=== PATIENT | female | born 1985 | race Caucasian/White ===

== ENCOUNTER 2024-11-24 12:57 | Emergency (ER) | payer OTHER, SELFPAY ==
--- OUTSIDE RECORDS SUMMARY | 2024-11-24 13:00 | XMS_ITS | Encounter Summary ---
Author Organization [place] Address [address] [place] [id number] Care Team Providers Care Card Brusher Name Role Phone Dahiana Segundo MD Primary Care Provider Encounter Details Date Type Department Care Team (Late st Contact Info) Description 08/29/[address] [place] [address] Dahiana Segundo MD [address] [place] [phone] Social History Tobacco Use Types Packs/Day Years Used Date Smoking Tobacco: Never Alcohol Use Standard Drinks/Week Comments No 0 (1 standard drink = 0.6 oz pur e alcohol) Adolescent Education Answer Date Record ed Getting School Help Needed Not on file 04/12 Comments No Sex and Gender Information Value Date Recorded Sex Assigned at Not on file 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
--- OUTSIDE RECORDS SUMMARY | 2024-11-24 13:00 | XMS_ITS | Encounter Summary ---
Author Organization [place] Address [address] [place] [phone] Care Team Providers Care Oracle Manufacturing Consultant Name Role Phone Dahiana Segundo MD Primary Care Provider Reason for Visit * Reason Onset Date Comments Call To Schedule Appointment 04/27/2020 Lef t message to schedule DEXA Encounter Details Date Type Department Care Team (Late st Contact Info) Description 04/27/[address] [place] [address] Dahiana Segundo MD [address] [place] [phone] Call To Schedule Appointment (Left message to schedule DEXA) Social History Tobacco Use Types Packs/Day Years Used Date Smoking Tobacco: Never Alcohol Use Standard Drinks/Week Comments No 0 (1 standard drink = 0.6 oz pur e alcohol) Adolescent Education Answer Date Record ed Getting School Help Needed Not on file 04/12 Comments No Sex and Gender Information Value Date Recorded Sex Assigned at Not on file 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
--- OUTSIDE RECORDS SUMMARY | 2024-11-24 13:00 | XMS_ITS | Clinical Summary ---
Author Organization [place] Address [address] [place] [phone] Care Team Providers Care Interim Controller Name Role Phone Dahiana Segundo MD Primary Care Provider Allergies Active Allergy Reactions Criticality Noted Date Comments Penicillins Rash Low 08/17/2011 Medications Vit-Fe Fumarate-FA ( MULTIVITAMIN PLUS IRON) 27-0.8 MG TABS Take 1 tablet by mouth daily. Active ferrous sulfate (SLO-FE) 142 (45 FE) MG TBCRIndications:S upervision of other normal Take 1 tablet by mouth 2 times daily. 08/19/2011 Active Active Problems Problem Noted Date Diagnosed Date Indication for care in labor or delivery 015 (normal spontaneous vaginal delivery) 05/27 Labor and delivery indication for care or interv ention 04/20/2013 Immunizations Name Administration Dates Next Due Rhogam 05/28/2015 Social History Tobacco Use Types Packs/Day Years Used Date Smoking Tobacco: Never Alcohol Use Standard Drinks/Week Comments No 0 (1 standard drink = 0.6 oz pur e alcohol) Adolescent Education Answer Date Record ed Getting School Help Needed Not on file 04/12 Comments No Sex and Gender Information Value Date Recorded Sex Assigned at Not on file 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 Gender Identity Not on file Sexual Orientation Not on file Last Filed Vital Signs Vital Sign Reading Time Taken Comments Blood Pressure 121/77 05/29/2015 8:49 AM SUBSTATION OPERATOR CHIEF Pulse 71 05/28/2015 12:04 AM SUBSTATION OPERATOR CHIEF Temperature 36.6 C (97.9 F) 05/29/2015 8:49 AM SUBSTATION OPERATOR CHIEF Respiratory Rate 18 05/29/2015 8:49 AM SUBSTATION OPERATOR CHIEF Oxygen Saturation 98% 04/20/2013 4:48 PM CDT Inhaled Oxygen Concentration - - Weight 64 kg (141 lb) 04/20/2013 11:02 AM CDT Height 157.5 cm (5' 2) 04/20/2013 11:02 AM CDT Body Mass Index 25.79 04/20/2013 11:02 AM CDT Plan of Treatment Health Maintenance Due Date Last Done Comments ADVANCE CARE PLANNING 1984 ANNUAL REVIEW OF HM ORDERS 1984 DIABETES SCREENING 1984 MAMMO SCREENING 1984 YEARLY PREVENTIVE VISIT 10/16/1987 HEPATITIS C SCREENING 2002 HEPATITIS B IMMUNIZATION (1 of 3 - 19+ 3-dose series) 10/16/2003 DTAP/TDAP/TD IMMUNIZATION (2 - Td or Tdap) 03/10/2023 03/10/2013 COVID-19 Vaccine ( - 2023- season) 2024 11/30/2020, 11/02/2020 INFLUENZA VACCINE (#1) 2024 , 05/13/2019, 06/03/2018, Additional history exists PHQ-2 (once per calendar year) 2024 LIPID 2024 HPV TEST 10/10/2028 10/11/2023 PAP 10/10/2028 10/11/2023 ZOSTER IMMUNIZATION (1 of 2) 2034 HIV SCREENING Completed 10/11/2014, 08/23, 01/03/2011 Pneumococcal Vaccine: Pediatrics (0 to 5 Years) and At-Risk Patients (6 to 49 Years) Aged Out 08/31/2019 No longer eligible based on patient's age to complete this topic HPV IMMUNIZATION Aged Out No longer e ligible based on patient's age to complete this topic MENINGITIS IMMUNIZATION Aged Out No l onger eligible based on patient's age to complete this topic Procedures Procedure Name Priority Date/Time Associated Diagnosis Comments GYNECOLOGIC CYTOLOGY Routine 10/11/2023 3:59 PM CDT Encounter for gynecological examination (general) (routine) without abnormal findings HPV HIGH RISK TYPES DNA CERVICAL Routine 10/11/2023 3:59 PM CDT Encounter for gynecological examination (general) (routine) without abnormal findings HIV ANTIGEN ANTIBODY COMBO Routine 10/11/2014 from Last 3 Months or Most Recently Relevant to Health Maintenance Results * Gynecologic Cytology (PAP) (10/11/2023 3:59 PM CDT) Interpretation Negative for Intraepithelial Lesion or Malignancy (NILM) 10/16/2023 12:40 PM CDT [facility] Comment Papanicolaou Test Limitations: Cervical cytology is a screening test with limited sensitivity, and regular screening is critical for cancer prevention. Pap tests are primarily effective for the diagnosis/prevent ion of squamous cell carcinoma, not adenocarcinoma or other cancers. 10/16/2023 12:40 PM CDT [facility] Specimen Adequacy Satisfactory for evaluation, endocervical/allison sformation zone component present 10/16/2023 12:40 PM CDT [facility] Clinical Information none 10/16/2023 12:40 PM CDT [facility] LMP/Menopause Date 09-24-23 10/16/2023 12:40 PM CDT [facility] Reflex Testing Yes regardless of result 10/16/2023 12:40 PM CDT [facility] Previous Abnormal? No 10/16/2023 12:40 PM CDT [facility] Previous Abnormal Diagnosis lps neg/hpv-neg 10/16/2023 12:40 PM CDT [facility] Performing Labs The technical component of this testing was completed at [facility] 10/16/2023 12:40 PM CDT [facility] Brushing CERVIX UTERI STRUCTURE / Unknown 10/11/2023 3:59 PM CDT 10/11/2023 8:40 PM CDT us Dahiana PATEL - [place] REYES Final Result [facility] [address], [address] [place] [phone] * HPV High Risk Types DNA Cervical (10/11/2023 3:59 PM CDT) Other HR HPV Negative Negative 10/17/2023 4:39 PM CDT [facility] HPV16 DNA Negative Negative 10/17/2023 4:39 PM CDT [facility] HPV18 DNA Negative Negative 10/17/2023 4:39 PM CDT [facility] FINAL DIAGNOSIS This patient's sample is negative for HPV DNA. This test was developed and its performance characteristics determined by the [facility], [facility] Diagn[facility]. It has not been cleared or approved by the FDA. The laboratory is regulated under CLIA as qualified to perform high-complexity testing. This test is used for clinical purposes. It should not be regarded as investigational or for research. METHODOLOGY: The [employer] 4800 system uses automated extraction, simultaneous amplification of HPV (L1 region) and beta-globin, followed by real time detection of fluorescent labeled HPV and beta globin using specific oligonucleotide probes. The test specifically identifies types HPV 16 DNA and HPV 18 DNA while concurrently detecting the rest of the high risk types (31, 33, 35, 39, 45, 51, 52, 56, 58, 59, 66 or 68). COMMENTS: This test is not intended for use as a screening device for woman under age 30 with normal cervical cytology. Results should be correlated with cytologic and histologic findings. Close clinical followup is recommended. 10/17/2023 4:39 PM CDT [facility] Brushing CERVIX UTERI STRUCTURE / Unknown Non-blood Collection / Unknown 10/11/2023 3:59 PM CDT 10/17/2023 8:19 AM CDT us Dahiana Segundo MD LAB - BLOOD ORDERABLES Final R esult [facility] [address], [address] [place] [phone], [facility] * HIV Antigen Antibody Combo (10/11/2014) HIV Antigen Antibody Combo negative Blood specimen (specimen) us Patient Reported LAB - BLOOD ORDERABLES Final Re sult from Last 3 Months or Most Recently Relevant to Health Maintenance Insurance [employer] Care Teams Interim Controller Relationship Specialty Start Date End Date Dahiana Segundo MD [address] [facility] [address] [place] [phone] PCP - General photographs curator 07/19/11
--- OUTSIDE RECORDS SUMMARY | 2024-11-24 13:00 | XMS_ITS | Data Portability ---
Author Organization [facility] [employer], [id number] Address [address] [place] [address] Assessment No assessment recorded. Plan of Treatment Reminders Order Date Submit Date Provider Last Modified By Organization Details Last Modified Time Details Appointments None recorded. Lab Pap test, slide(s), cervical 2023 024 [facility], [address] [facility], [address], [place], [address], 4 17:43:07 hemoglobin (Hb), fingerstick , blood 2020 [id number] _[facility] , [address] [place] [address], [address], [place], [address], 21:43:09 Referral None recorded. Procedures None recorded. Surgeries None recorded. Imaging None recorded. Medication Orders None recorded. Patient TargetsNo targets recorded. Patient Instructions Encounter Date Encounter Id Patient Instructions Last Modified By Organization Details Last Modified Time 12/16/2020 [id number] - Encouraged breast self-awareness and monthly breast exams. - Discussed appropriate breast cancer screening and mammogram intervals. - Non-gynecologic health concerns managed by primary care provider. - Continue f/u with GI for GI issues. ameschke Not available 12/16/2020 21:44:12 05/25/2022 [id number] - Encouraged breast self-awareness and monthly breast exams. - Calcium and vitamin D intake discussed. - Discussed appropriate breast cancer screening and mammogram intervals. - Non-gynecologic health concerns managed by primary care provider. ameschke Not available 05/27/2022 12:46:13 10/11/2023 [id number] - Encouraged breast self-awareness and monthly breast exams. Discussed concern with soreness/full feeling of left breast. Improved today and exam normal. Recommend monitoring. If persists, she will call and would then recommend diagnostic mammogram and US. She agrees. - Patient will return to clinic for fasting labs - cholesterol and glucose (screening) - Discussed appropriate breast cancer screening and mammogram intervals. - Non-gynecologic health concerns managed by primary care provider. ameschchanning Not available 10/11/2023 21:55:40 Reason for Referral None Reported. Results Created Date Observation Date Name Description Value Unit Range Abnormal Flag Note LastModifiedBy Organization Detail LastModifiedTime 12/17/19 21 12/16/2020 hemog lobin (Hb), finge rstic k, blood fingerstick hemoglobin 12.6 g/dL 12.0-1 5.0 Not Available [id number] le_vera [address] [facility] [address], [place], [address], 12/16/2020 17:09:07 10/11/19 24 10/11/2023 GYNEC OLOGI C CYTOL OGY (PAP SMEAR ) gynecologic cytology SEE RESULT S BELOW SPECI MEN SOURC E [place] ing Cervi x BKR LAB AP PRODUCT GRADER INTER PRETA TION: Negat floresita for Intra epith elial Codey [place] or Samanta jimenez (NILM ) Elect elisabeth rizvi rehan d by Susanne Andrea , MATEUSZ (ASCP ) on 2023 at 12:40 PM Path repor [email or web address] ments Imp Spec: Papan icola ou Test Limit ation s: Cervi blanca cytol ogy is a scree mel test with limit ed sensi tivit y, and regul ar scree mel is criti blanca for cance r preve ntion . Pap tests are prima rily effec tive for the diagn osis/ preve ntion of squam ous cell carci noma, not adeno carci noma or other cance rs. BKR LAB AP PRODUCT GRADER ADEQU ACY: Satis facto ry for evalu ation , endoc ervic al/tr ansfo rmati on zone compo nent prese nt Path repor [email or web address] evant Hx Spec: none BKR LAB AP LMP: 3-5-2 4 BKR LAB AP HPV REFLE X: Yes regar dless of resul t BKR LAB AP PREVI OUS ABNOR MAL: No BKR LAB AP PREVI OUS ABNL DX: lps 12-20 18 neg/h pv-ne g Path repor [email or web address] ments Imp Spec: The techn ical compo nent of this testi ng was compl eted at [facility] Not Available [address], [place], [address], 10/17/2023 17:43:06 10/11/19 24 10/11/2023 HPV HIGH RISK TYPES DNA CERVI BLANCA other HR HPV Negati ve negati ve Not Available [address], [place], [address], 10/17/2023 17:43:24 10/11/19 24 10/11/2023 HPV HIGH RISK TYPES DNA CERVI BLANCA HPV16 DNA Negati ve negati ve Not Available [address], [place], [address], 10/17/2023 17:43:24 10/11/19 24 10/11/2023 HPV HIGH RISK TYPES DNA CERVI BLANCA HPV18 DNA Negati ve negati ve Not Available [address], [place], [address], 10/17/2023 17:43:24 10/11/19 24 10/11/2023 HPV HIGH RISK TYPES DNA CERVI BLANCA final diagnosis See note below This patie nt's sampl e is negat floresita for HPV DNA. This test was devel oped and its perfo rmanc e katrina cteri stics deter mined by the [facility] . It has not been clear ed or appro susannah by the FDA. The labor atory is regul ated under CLIA as quali fied to perfo rm high- compl exity testi ng. This test is used for clini blanca purpo ses. It shoul d not be regar ded as inves tigat ional or for resea rch. METHO DOLOG Y: The [employer] 4800 syste m uses autom ated extra ction , simul taneo us ampli ficat ion of HPV (L1 regio n) and beta- globi n, follo wed by real time detec tion of fluor escen t label ed HPV and beta globi n using speci fic oligo nucle otide probe s. The test speci fical ly ident ifies types HPV 16 DNA and HPV 18 DNA while concu rrent ly detec ting the rest of the high risk types (31, 33, 35, 39, 45, 51, 52, 56, 58, 59, 66 or 68). COMME NTS: This test is not inten ded for use as a scree mel devic e for woman under age 30 with garret l cervi blanca cytol ogy. Resul ts shoul d be corre lated with cytol ogic and histo logic findi ngs. Close clini blanca follo wup is recom brianna d. Not Available [address], [place], [address], 10/17/2023 17:43:24 Result Notes None recorded. Problems No Known Problems Procedures Surgical History Date Name Laterality Status Provider Name and Address Organization Details Recorded Time 10/11/19 24 Date of Last Pap Smear completed Oksana Calderón [place] - [facility] 10/18/2023 11:39:45 06/28/20 19 Date of Last [place] [address] [facility],[address], [place], [address], [place] [facility] [employer] 05/25/2022 12:14:26 lumpectomy of left breast completed Not Available [facility] 02/29/2020 01:04:49 tooth extraction completed Not Available [facility] 02/29/2020 01:04:49 colposcopy of cervix completed Not Available [facility] 02/29/2020 01:04:49 Imaging Results None recorded. Procedure Notes None recorded. Medical Equipment None Reported. Allergies Allergen ID Allergen Name Allergen Category Reaction Reaction Severity Criticality Documentation Date Start Date Code Code System Note Provider Name and Address Organization Details Recorded Time 731157 Product containin g penicilli n (product) medicatio n Not available Not available Not available 02/26/2020 48175 8001 SNOMED *Note : 07/28 - Not Available [facility] 0 16:58:32 286319 amoxicill in trihydrat e medicatio n Not available Not available Not available 02/26/2020 21352 8 RxNorm *Note : 07/28 - Not Available [facility] 0 16:58:32 Medications Name Sig Start Date Stop Date Status Note LastModified by Organization Details LastModified Time hydrocortis one acetate 25 mg rectal suppository INSERT 1 SUPPOSITO RY BY RECTAL ROUTE THREE TIMES A WEEK 05/25 completed Not Available Not Available Not Available cephalexin 500 mg capsule TAKE 1 CAPSULE BY MOUTH THREE TIMES A DAY 10/10 completed Not Available Not Available Not Available polymyxin B sulfate 10,000 unit-trimet hoprim 1 mg/mL eye drops INSTILL 1 DROP INTO EACH EYE 4 TIMES DAILY FOR 7 DAYS 10/10 completed Not Available Not Available Not Available mesalamine 1,000 mg rectal suppository INSERT 1 SUPPOSITO RY RECTALLY EVERY DAY AT BEDTIME 10/10 completed Not Available Not Available Not Available mesalamine 1.2 gram tablet,kg yed release TAKE 4 TABLETS BY MOUTH EVERY DAY WITH A MEAL active Not Available Not Available No t Available Vitals Date Recorded Body height Body mass index (BMI) Body weight Systolic blood pressure Diastolic blood pressure Provider Name and Address Organization Details Last Updated DateTime 05/25/2022 157.48 cm 20.7 kg/m2 00853.94 g 108 mm[Hg] 66 mm[Hg] Liana Butcher (TERMED) [place] [facility] 2 11:46:11 Date Recorded Body height Body mass index (BMI) Body weight Systolic blood pressure Diastolic blood pressure Provider Name and Address Organization Details Last Updated DateTime 10/11/2023 157.48 cm 20.9 kg/m2 67174.25 g 100 mm[Hg] 70 mm[Hg] Cande Bocanegra [facility] CH[facility]ING MANIPULATOR 4 16:24:49 Date Recorded Body height Body mass index (BMI) Body weight Systolic blood pressure Diastolic blood pressure Provider Name and Address Organization Details Last Updated DateTime 12/16/2020 157.48 cm 21 kg/m2 72112.12 g 104 mm[Hg] 66 mm[Hg] Lianadonte Valerain (TERMED) [facility] CH[employer] [employer]IP[employer]ATOR 1 17:08:38 Social History Question Answer Notes LastModified by Organizat ion Details LastModified Time Tobacco Smoking Status Never Smoker Cande smalls, [facility] CH[employer]ING MANIP[employer]ATOR 10/11/2023 08:45:18 Do You Have An Advance Directive? No Information not available 10/11/2023 What Is Your Level Of Alcohol Consumption? None Former *Qty: 1dr/wk Information not available 10/11/2023 What Is Your Level Of Caffeine Consumption? None Information not available 10/11/2023 Which Illicit Or Recreational Drugs Have You Used? 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 Estella 04/20/13. Franky 05/27/15 Information not available 05/25/2022 Country Of [place] Infor mation not available 05/25/2022 History Of Domestic Violence No Denies All Domestic Violence [email or web address] Information not available 02/29/2020 Spouse/Partners Name Ramin Lawrence Information not available 05/25/2022 What Is Your Relationship Status? Information not available 05/25/2022 Are You Sexually Active? Yes Information not available 05/25/2022 How Much Tobacco Do You Smoke? No Information not available 05/25/2022 Do You Use Any Illicit Or Recreational Drugs? No Information not available 05/25/2022 Sex: Unknown Functional Status Question Answer Note LastModified by Organization D etails LastModified Time What is your exercise level? Moderate Information not available 05/25/2022 Mental Status None recorded. Family History Relationship Description Onset Age of this Age Resolved Age Notes LastModified by Organization Details LastModified Time Maternal Grandmother Family history of diabetes mellitus 70 Diabet es: Matern al uncle - ameschke Not available 05/25/2022 12:14:34 Mother Disorder of thyroid gland 45 Thyroi d Diseas e [email or web address] Not available 02/29/2020 01:05:36 Father Parkinson's disease Pari son's Paraly sis Agitan s ameschke Not available 05/25/2022 12:14:34 Unspecified Relation Malignant tumor of pancreas aunt ameschke Not available 2021 12:14:34 Maternal Aunt Malignant tumor of pancreas 69 69 ameschke Not available 2021 12:14:34 Medical History Condition Response GI-Other Y GI- Crohn's/Ulcerative Colitis Y Gynecological History Statement/Question Response History of Abnormal PAP Y History of Recurrent Ovarian Cysts N HPV Test Negative Date of LMP 09/24/2023 History of Cervical Dysplasia Y 6 14 Sexually Active Y Age at Menarche: 12 Date of Last Colonoscopy 06/28/2019 29 History of Sexually Transmitted Infectio n N Y HPV Vaccine Complete Diethylstilbestrol (YUE) exp osed daughters of women who took YUE during ? N Current Control Method Condoms Urinary Incontinence Symptoms N Date of Last Pap Smear 10/11/2023 Date of Last Cholesterol Screening 07/22 Obstetrics History GPAL:G 3 P 3 0 0 3 Type Value Multiple Births 0 Full Term 3 Induced 0 Spontaneous 0 Premature 0 Living 3 Ectopics 0 Total 3 Immunizations Vaccine Type Date Status Note Provider Nam e and Address Organization Details Recorded Time Tdap 3 completed Not Available [facility] 02/29/2020 01:08:21 Tdap 5 [place] [address] [address] [facility],[address], [place], [address], [place] [facility] 05/25/2022 12:15:30 Influenza, split virus, trivalent, preservative 5 [place] [address] [address] [employer],[address], [place], [address], [place] [facility] 05/25/2022 12:15:30 Influenza, split virus, trivalent, preservative 1 [place] [address] [employer],[address], [place], [address], [facility] - [facility] [employer] 05/25/2022 12:15:30 Influenza, split virus, trivalent, preservative 4 [place] [address] [employer],[address], [place], [address], [place] [facility] [employer] 05/25/2022 12:15:30 unknown 1 [place] [address] [employer],[address], [place], [address], [facility] - [facility] 05/25/2022 12:15:30 Influenza, split virus, quadrivalent, PF 9 [place] [address] [employer],[address], [place], [address], [facility] - [facility] [employer] 05/25/2022 12:15:30 Influenza, split virus, quadrivalent, preservative 6 [place] [address] [employer],[address], [place], [address], [facility] - [facility] [employer] 05/25/2022 12:15:30 Influenza, split virus, quadrivalent, PF 0 [place] [address] [employer],[address], [place], [address], [facility] - [facility] [employer] 05/25/2022 12:15:30 COVID-19, mRNA, LNP-S, PF, 100 mcg/0.5mL dose or 50 mcg/0.25mL dose 1 [place] [address] [employer],[address], [place], [address], [facility] - [facility] [employer] 05/25/2022 12:15:30 COVID-19, mRNA, LNP-S, PF, 100 mcg/0.5mL dose or 50 mcg/0.25mL dose 1 [place] [address] [facility], [place], [address], [facility] CHARGING MANIPULATOR 05/25/2022 12:15:30 Influenza, split virus, quadrivalent, PF 7 [place] [address] [facility], [place], [address], [facility] CH[employer]ING MANIPULATOR 05/25/2022 12:15:30 Pneumococcal conjugate PCV 13 0 [place] [address] [facility], [place], [address], [facility] CH[employer]ING MANIP[employer]ATOR 05/25/2022 12:15:30 Influenza, split virus, quadrivalent, PF 8 [place] [address] [facility], [place], [address], [facility] CH[employer]ING MANIP[employer]ATOR 05/25/2022 12:15:30 Past Encounters Encounter ID Performer Location Encounter Start Date Encounter Closed Date Diagnosis/Indication Diagnosis SNOMED-CT Code Diagnosis ICD10 Code Diagnosis Note [id number] MD AMBERLY HOFFMAN004_[place] [place] [id number] 12/16/2020 16:41:39 12/19/2020 07:39:08 Gynecologic examination 61682067 Z01.539 [id number] MD AMBERLY HOFFMAN[address] ,[facility] [address] [place] [id number] 05/25/2022 11:39:25 05/29/2022 12:05:29 Gynecologic examination 22915168 Z01.992 [id number] MD [facility] [place] [id number] 10/11/2023 16:19:09 10/14/2023 09:29:00 Gynecologic examination 48026160 Z01.419 Health Concerns Section Related Observation LastModified by Organization Detai ls LastModified Time None Recorded Concern Status LastModified by Organization Details LastModified Time None Recorded Advance Directives Directive N: Payers Encounter Date Sequence Insurance Name Policy Number Policy Kowalski Covered Member ID Kowalski Member ID Guarantor Name 12/16/2020 1 [place] [id number] Donnell Fullerin [id number] Vangie Barrett Melinda 05/25/2022 1 [place] [id number] Donnell Fullerin [id number] Vangie Barrett Melinda 10/11/2023 1 [employer] (PPO) [id number] Donnell Fullerin [id number] Vangie Fullerin Notes Date Note Type Note Provider Name and Address Organization Details Recorded Time 12/16/2020 text/html Annual Premenopausal ([facility])Reported bypatient.Patient Relationship To Practice:nadeem meza patient Current Medical History:changes in medical history since last visit; active medical problems ; GI - celiac, ulcerative proctitis Menstrual History:Frequency of Menses: monthly; Duration of Flow: 5 days; Quantity of Flow: moderate Contraceptive Method:Current Method Used: condoms; satisfied Sexually Active:Yes: STI Screen:declines Health/Prevention:B reast Self Exam: yes Mammogram:not applicable Pap Smear +/- HPV Cotesting:not applicable Thyroid/Lipid Screening:up-to-williams e Colonoscopy:[place] [address] [facility],[address], [place], [address], [place] - [facility] [employer] 12/16/2020 21:45:00 05/25/2022 text/html Annual Premenopausal ([facility])Reported bypatient.Patient Relationship To Practice:nadeem meza patient Current Medical History:active medical problems stable; GI - celiac, ulcerative proctitis - started mesalamine Menstrual History:Frequency of Menses: monthly; Duration of Flow: 5 days; Quantity of Flow: moderate Contraceptive Method:satisfied: condoms Sexually Active:Yes: Health/Prevention:B reast Self Exam: yes Mammogram:not applicable Pap Smear +/- HPV Cotesting:up-to-williams e Thyroid/Lipid Screening:up-to-williams e Colonoscopy:up-to-d ate Patient has:Primary Care Physician: [place] [address] [facility],[address], [place], [address], [place] [facility] [employer] 05/27/2022 12:46:44 10/11/2023 text/html Annual Premenopausal ([facility])Reported bypatient.Patient Relationship To Practice:nadeem meza patient Current Medical History:active medical problems stable; GI - celiac, ulcerative proctitis - on mesalamine, doing pretty well Menstrual History:Frequency of Menses: monthly; Duration of Flow: 5 days; Quantity of Flow: moderate Contraceptive Method:satisfied: condoms Sexually Active:Yes: Health/Prevention:B reast Self Exam: yes Mammogram:not applicable Pap Smear +/- HPV Cotesting:due Thyroid/Lipid Screening:due Colonoscopy:up-to-d ate Patient has:Primary Care Physician: yesNotes:Yesterday left breast felt soler, a maybe a little sore. Improved today but not resolved. No skin changes, redness, lumps, [place] [address] [facility],[address], [place], [address], [place] [facility] [employer] 10/11/2023 21:56:47 OBGyn Episode Ob Episode Information Episode Created Date Number of Fetuses Patient Bloodtype Patient rh Status Prepregnancy Weight lbs Domestic Partner Domestic Partner Phone Father Name Chief Dispatcher Status 12/17/19 21 1 CLOSED Fetus Data First Name Last Name Admitted to NICU Weight (g) Sex Living Outcome Pediatric Complications Fetus ID Race Codes Race Delivery Type 3912.23 1 M Full Term [id number] Bernardo Calculation Initial Bernardo Date Initial Exam Date Initial Exam Provider Initial Ultrasound Date Last Menstrual Period Date Ultra Sound Weeks Gestation 0 Eighteen To Twenty Week Bernardo Update Ultra Sound Date Fundal Height At Umbil Quickening Date Ultra Sound Latest Weeks Gestation Final Bernardo Confirmed By Final Bernardo Confirmed Date Final Bernardo Date Ultra Sound Latest Days Gestation 0 0 Menstrual History Last Menstrual Date Menses Monthly On Bcp Conception Prior Menses Frequency Hcg Plus Date Menarche Onset Age Delivery Information Delivery Date Delivery Type Labor Anesthesia Weeks Gestation Incision Type Labor Labor Length Hrs Delivered By Post Complications Tubal Sterilization Discharge Date Comments 2 40 Discharge Information Feeding Method Contraceptive Method Maternal HG B and HCT Levels Ob Episode Information Episode Created Date Number of Fetuses Patient Bloodtype Patient rh Status Prepregnancy Weight lbs Domestic Partner Domestic Partner Phone Father Name Chief Dispatcher Status 12/17/19 21 1 CLOSED Fetus Data First Name Last Name Admitted to NICU Weight (g) Sex Living Outcome Pediatric Complications Fetus ID Race Codes Race Delivery Type 4082.32 8 M Full Term [id number] Bernardo Calculation Initial Bernardo Date Initial Exam Date Initial Exam Provider Initial Ultrasound Date Last Menstrual Period Date Ultra Sound Weeks Gestation 0 Eighteen To Twenty Week Bernadro Update Ultra Sound Date Fundal Height At Umbil Quickening Date Ultra Sound Latest Weeks Gestation Final Bernardo Confirmed By Final Bernardo Confirmed Date Final Bernardo Date Ultra Sound Latest Days Gestation 0 0 Menstrual History Last Menstrual Date Menses Monthly On Bcp Conception Prior Menses Frequency Hcg Plus Date Menarche Onset Age Delivery Information Delivery Date Delivery Type Labor Anesthesia Weeks Gestation Incision Type Labor Labor Length Hrs Delivered By Post Complications Tubal Sterilization Discharge Date Comments 5 40 Discharge Information Feeding Method Contraceptive Method Maternal HG B and HCT Levels Ob Episode Information Episode Created Date Number of Fetuses Patient Bloodtype Patient rh Status Prepregnancy Weight lbs Domestic Partner Domestic Partner Phone Father Name Chief Dispatcher Status 12/17/19 21 1 CLOSED Fetus Data First Name Last Name Admitted to NICU Weight (g) Sex Living Outcome Pediatric Complications Fetus ID Race Codes Race Delivery Type 3458.63 9 F Full Term [id number] Bernardo Calculation Initial Bernardo Date Initial Exam Date Initial Exam Provider Initial Ultrasound Date Last Menstrual Period Date Ultra Sound Weeks Gestation 0 Eighteen To Twenty Week Bernardo Update Ultra Sound Date Fundal Height At Umbil Quickening Date Ultra Sound Latest Weeks Gestation Final Bernardo Confirmed By Final Bernardo Confirmed Date Final Bernardo Date Ultra Sound Latest Days Gestation 0 0 Menstrual History Last Menstrual Date Menses Monthly On Bcp Conception Prior Menses Frequency Hcg Plus Date Menarche Onset Age Delivery Information Delivery Date Delivery Type Labor Anesthesia Weeks Gestation Incision Type Labor Labor Length Hrs Delivered By Post Complications Tubal Sterilization Discharge Date Comments 3 40 Discharge Information Feeding Method Contraceptive Method Maternal HG B and HCT Levels
[2024-11-24 13:07] VITALS: BP 116/72; PULSE 92; RESP 16; TEMP 37.1; O2SAT 98; BMI 20.1
--- NOTE | 2024-11-24 13:19 | ED_ITS ---
HPI - Skin/Abscess/Foreign Bdy General Chief complaint: Skin/Abscess/Foreign Body Stated complaint: cut on lower right foot Time Seen by Provider: 11/24/24 13:05 History of Present Illness HPI narrative: This 39-year-old female comes in with a laceration to her right foot. She was at home and stepped accidentally onto a scissors that was open. She has a irregular 4 cm laceration on the medial aspect of her right foot. She states that she is unsure of her tetanus status. Related Data Home Medications ?Medication ?Instructions ?Recorded ?Confirmed mesalamine 1.2 gram tablet,delayed 4.8 g PO DAILY 06/24/23 11/24/24 release Previous Rx's ?Medication ?Instructions ?Recorded cephalexin 500 mg capsule 500 mg PO TID #21 caps 06/25/23 Allergies Allergy/AdvReac Type Severity Reaction Status Date / Time amoxicillin Allergy Intermediate Rash Verified 11/24/24 13:16 Penicillins Allergy Intermediate Rash Verified 11/24/24 13:16 Review of Systems Status of ROS: Reports: 10 or more systems reviewed and unremarkable except as noted in History and below Narrative: Constitutional: No fevers, no weight gain or loss. Eyes: No discharge. No vision changes. HENT: No congestion, no sore throat, no ear pain. Cardiovascular: No chest pain, no palpitations. Respiratory: No shortness of breath, no wheezes, no cough. Gastrointestinal: No abdominal pain, no vomiting, no diarrhea. Genitourinary: No dysuria, no hematuria. Musculoskeletal: Normal range of motion. Skin: No rashes, no pruritis. Neurological: No dizziness, weakness, sensory change, speech change. Endo/Heme/Allergies: No bruising or bleeding. No polydipsia. Pysch: no suicidality, no anxiety, no insomnia. All other systems reviewed and are negative. Exam Narrative: Exam Narrative: Constitutional: Well-developed, well-nourished, no acute distress. HEENT: Normocephalic, atraumatic. Neck: Normal range of motion. Nontender. Supple. Heart: Regular. No murmurs. Normal rate. Intact distal pulses. Lungs: Clear to auscultation. No chest discomfort. No wheezes, rhonchi, or rales. Abdomen: Normal bowel sounds. Nontender. No rebound tenderness. Genitalia: Deferred. Back: No midline tenderness. Normal range of motion. Extremities: Normal range of motion. Right foot has a 4 cm irregular laceration on the medial aspect just proximal to the MP joint of the 1st toe. Skin: Intact. No rash. Warm. No erythema or pallor. Neurologic: No altered sensation. No weakness. Alert and oriented. Psychiatric: No suicidality. No anxiety or depression. No insomnia. Nursing notes and vitals signs are reviewed. Const: Vital Signs, click to edit/add: Vital Signs - 24 hr 11/24/24 13:07 Temperature 98.8 F Pulse Rate [Pulse Oximeter] 92 Respiratory Rate 16 Blood Pressure [Ri ght Upper Arm] 116/72 Pulse Oximetry 98 Oxygen Delivery Me thod Room Air Course Vital Signs Vital signs: Initial Vital Signs Temperature 98.8 F 11/24/24 13:07 Temperature Source Temporal Artery Scan 11/24/24 13:07 Pulse Rate 92 11/24/24 13:07 Respiratory Rate 16 11/24/24 13:07 Blood Pressure 116/72 11/24/24 13:07 Blood Pressure Mean 86 11/24/24 13:07 Pulse Oximetry 98 11/24/24 13:07 Oxygen Delivery Method Room Air 11/24/24 13:07 Vital Signs Temperature 98.8 F 11/24/24 13:07 Pulse Rate 92 11/24/24 13:07 Respiratory Rate 16 11/24/24 13:07 Blood Pressure 116/72 11/24/24 13:07 Pulse Oximetry 98 11/24/24 13:07 Oxygen Delivery Method Room Air 11/24/24 13:07 Temperature 98.8 F 11/24/24 13:07 Pulse Rate 92 11/24/24 13:07 Respiratory Rate 16 11/24/24 13:07 Blood Pressure 116/72 11/24/24 13:07 Pulse Oximetry 98 11/24/24 13:07 Oxygen Delivery Method Room Air 11/24/24 13:07 MDM - Skin/Abscess/Foreign Bdy MDM Narrative Medical decision making narrative: This patient has laceration on her right foot as described above. This would benefit from suture repair. After anesthesia with 1% lidocaine the wound was cleansed and explored to its base. I placed 7 sutures in interrupted fashion using 4.0 Ethilon suture. This nicely approximated the wound edges. Instructions regarding wound care were given and the need to return for suture removal in 7-10 days. Discharge Plan Discharge Clinical Impression: Laceration Patient Disposition: Home, Self-Care Condition: Improved Additional Instructions: Keep wound clean and dry. Activity as tolerated. Follow-up with clinic urgent care in 7-10 days for suture removal. Return if worsening. Prescriptions: No Action mesalamine 1.2 gram tablet,delayed release (DR/EC) 4.8 g PO DAILY cephalexin 500 mg capsule 500 mg PO TID Qty: 21 0RF Follow Up/Referrals: Provider,Not a Local [Primary Care Provider] - Stand Alone Forms: [employer] Info Instructions
--- OUTSIDE RECORDS SUMMARY | 2024-11-24 13:30 | XMS_ITS | Encounter Summary ---
Author Organization [facility] Address [address] [place] [id number] Care Team Providers Care Digital Watch Assembler Name Role Phone Dahiana Segundo MD Primary Care Provider [phone] Reason for Visit * Reason Onset Date Comments Call To Schedule Appointment 04/27/2020 Lef t message to schedule DEXA Encounter Details Date Type Department Care Team (Late st Contact Info) Description 04/27/[address] [place] [address] Dahiana Segundo MD [address] [place] [phone] Call To Schedule Appointment (Left message [...] on file 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
--- OUTSIDE RECORDS SUMMARY | 2024-11-24 13:30 | XMS_ITS | Encounter Summary ---
Author Organization [facility] Address [address] [place] [id number] Care Team Providers Care Transport Tank Technician Name Role Phone Dahiana Segundo MD Primary Care Provider Encounter Details Date Type Department Care Team (Late st Contact Info) Description 08/29/[address] [place] [address] Dahiana Segundo MD [address] [place] [phone] Social History Tobacco Use Types Packs/Day Years Used Date Smoking Tobacco: Never Alcohol Use Standard Drinks/Week Comments No 0 (1 standard drink = 0.6 oz pur e alcohol) Adolescent Education Answer Date Record ed Getting School Help Needed Not on file 04/12 Comments No Sex and Gender Information Value Date Recorded Sex Assigned at Not on file 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
--- OUTSIDE RECORDS SUMMARY | 2024-11-24 13:30 | XMS_ITS | Clinical Summary ---
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 INSERTING OPERATOR Gender Identity Not on file Sexual Orientation Not on file Last Filed Vital Signs Vital Sign Reading Time Taken Comments Blood Pressure 121/77 05/29/2015 8:49 AM INSERTING OPERATOR Pulse 71 05/28/2015 12:04 AM INSERTING OPERATOR Temperature 36.6 C (97.9 F) 05/29/2015 8:49 AM INSERTING OPERATOR Respiratory Rate 18 05/29/2015 8:49 AM INSERTING OPERATOR Oxygen Saturation 98% 04/20/2013 4:48 PM CDT [...] component of this testing was completed at [facility] 10/16/2023 12:40 PM CDT [facility] Brushing CERVIX UTERI STRUCTURE / Unknown 10/11/2023 3:59 PM CDT 10/11/2023 8:40 PM CDT us Dahiana PATEL - BROOKLYNN REYES Final Result [facility] [address] [facility] [address], [address] [place] [phone] * HPV High Risk Types DNA Cervical (10/11/2023 3:59 PM CDT) Other HR HPV Negative Negative 10/17/2023 4:39 PM CDT [facility] HPV16 DNA Negative Negative 10/17/2023 4:39 PM CDT [facility] HPV18 DNA Negative Negative 10/17/2023 4:39 PM CDT [facility] FINAL DIAGNOSIS This patient's sample is negative for HPV DNA. This test was developed and its performance characteristics determined by the [facility], Molecular Diagnostics Laboratory. It has not [...] followup is recommended. 10/17/2023 4:39 PM CDT [facility] Brushing CERVIX UTERI STRUCTURE / Unknown Non-blood Collection / Unknown 10/11/2023 3:59 PM CDT 10/17/2023 8:19 AM CDT us Dahiana Segundo MD LAB - BLOOD ORDERABLES Final R esult [facility] [address], [address] [place] [address], [facility] * HIV Antigen Antibody Combo (10/11/2014) HIV Antigen Antibody Combo negative Blood specimen (specimen) us Patient Reported LAB - BLOOD ORDERABLES Final Re sult from Last 3 Months or Most Recently Relevant to Health Maintenance Insurance [employer] [place] [employer] A[employer] Care Teams Butter Production Supervisor Relationship Specialty Start Date End Date Dahiana Segundo MD [address] [facility] [address] [place] [phone] PCP - General airport ramp attendant 07/19/11
[2024-11-24] MEDS: LIDOCAINE 1 % PF 30 ML INJECTION (13:43)
[2024-11-24] MEDS: TETANUS/DIPHTH/PERTUSSIS 0.5 ML SYRINGE IM (13:50)
== END 2024-11-24 14:36 | disposition home or self-care (01) ==
PROVIDERS: Emergency Provider Emergency Medicine Emergency Medical Services
DX: S91.311A Laceration without foreign body, right foot, initial encounter (principal); W22.8XXA Striking against or struck by other objects, initial encounter; Y93.01 Activity, walking, marching and hiking; Y92.009 Unspecified place in unspecified non-institutional (private) residence as the place of occurrence of the external cause; Z23 Encounter for immunization
CPT/HCPCS: 12002; 90471; 90715; 99284; J2003